=== PATIENT | male | born 1965 | race Caucasian/White ===

== ENCOUNTER 2017-01-08 01:14 | Emergency (ER) | payer BC ==
--- NOTE | ~2017-01-08 | ER ---
ADMIT: 01/08/2017 RM/LOC: ER [facility] MR#: [id number] [address] [facility] [id number] CORINA LORENZO [address] [address] Emergency Room Report SEX: M AGE: 51 : 1965 DATE: 01/08/2017 HISTORY OF PRESENT ILLNESS: The patient is a 51-year-old male at work, felt dizzy. He states he took a tramadol prior to going to work tonight. Never has done that before. Denies any headache, focal deficit, chest pain, shortness of breath, or syncope. Exam remarkable for nontoxic, afebrile, anxious male, otherwise unremarkable exam. EKG sinus rhythm without ST-T or Q- wave change. Normal CBC, CMP, glucose, D-dimer, troponin, CRP, and lactic acid. The patient was given a liter of bolus. Told not to take tramadol and go to work in the future. [facility]. Sukumar Rivas MD / . [facility] / [facility] JOB #: [id number] CC: Sukumar Rivas MD, Attending Physician
== END 2017-01-08 02:30 | disposition home or self-care (01) ==
LOC: ER 01:14
DX: R42 Dizziness and giddiness (principal); Z79.899 Other long term (current) drug therapy